=== PATIENT | female | born 1985 | race Asian ===

== ENCOUNTER 2018-05-16 20:42 | Emergency (ER) | payer OTHER ==
[~2018-05-16] VITALS: Ht 157.5 cm; Wt 90.0 kg
[2018-05-16 20:46] VITALS: BP 113/71
== END 2018-05-16 21:45 | disposition home or self-care (01) ==
LOC: ED 21:00
DX: S06.9X1A Unspecified intracranial injury with loss of consciousness of 30 minutes or less, initial encounter (principal); F10.129 Alcohol abuse with intoxication, unspecified; W22.8XXA Striking against or struck by other objects, initial encounter; Y93.89 Activity, other specified; Y92.89 Other specified places as the place of occurrence of the external cause; Y99.8 Other external cause status
CPT/HCPCS: 70450; 93005; 99284